=== PATIENT | male | born 1955 | race African-American/Black ===

== ENCOUNTER 2020-08-09 17:43 | Emergency (ER) | payer BC ==
[~2020-08-09] VITALS: Ht 170.2 cm; Wt 106.1 kg
[2020-08-09 18:04] VITALS: BP_SYST 156
[2020-08-09] MEDS ORDERED: LIDOCAINE 1% 10 MG/ML, 20 ML MDV INJ ONE (18:30)
[2020-08-09] MEDS ORDERED: DIPH-TET-PERTUS Vaccine 0.5 ML VIAL (ADACEL) I.M. ONE (18:45)
[2020-08-09 19:01] VITALS: BP_SYST 156
== END 2020-08-09 19:01 | disposition home or self-care (01) ==
LOC: SED 17:43
DX: S61.215A Laceration without foreign body of left ring finger without damage to nail, initial encounter (principal); Z88.0 Allergy status to penicillin; Z85.47 Personal history of malignant neoplasm of testis; W26.8XXA Contact with other sharp object(s), not elsewhere classified, initial encounter; Y93.89 Activity, other specified; Y92.89 Other specified places as the place of occurrence of the external cause; Y99.8 Other external cause status
CPT/HCPCS: 12001; 90471; 90715; 99283; J2001